=== PATIENT | female | born 1980 | race Two or more races ===

== ENCOUNTER 2019-06-28 15:29 | Outpatient (CLI) | payer OTHER | END 2019-06-28 15:38 | disposition home or self-care (01) | LOC: LAB 15:29 | DX: D51.1 Vitamin B12 deficiency anemia due to selective vitamin B12 malabsorption with proteinuria (principal); D50.0 Iron deficiency anemia secondary to blood loss (chronic); K91.1 Postgastric surgery syndromes; K91.2 Postsurgical malabsorption, not elsewhere classified; D51.3 Other dietary vitamin B12 deficiency anemia; N92.4 Excessive bleeding in the premenopausal period; D68.32 Hemorrhagic disorder due to extrinsic circulating anticoagulants; D50.8 Other iron deficiency anemias; D51.8 Other vitamin B12 deficiency anemias; I10 Essential (primary) hypertension; D55.0 Anemia due to glucose-6-phosphate dehydrogenase [G6PD] deficiency; D51.0 Vitamin B12 deficiency anemia due to intrinsic factor deficiency; E03.8 Other specified hypothyroidism; E06.3 Autoimmune thyroiditis ==